=== PATIENT | female | born 1930 | race Caucasian/White ===

== ENCOUNTER 2016-09-02 23:36 | Inpatient (IN) | payer MEDICARE, OTHER ==
--- NOTE | ~2016-09-02 | CN ---
Consultation Report [facility] [address] [place]. [address] NAME: VARUN ETIENNE : 29 STATUS : ADM IN PAT#: [id number] AGE: 85 ADM/REG DATE : 09/03/16 MR#: [id number] REPORT SERV DATE: 09/03/16 DICTATED BY: KAYLA WANG DATE: 09/03/16 REPORT STATUS : Draft TRANSCRIBED BY: MODL DATE: 09/03/16 GI CONSULTATION DATE OF CONSULTATION: 09/03/2016 REASON FOR CONSULTATION: Evaluation and management of bright red blood per rectum. HISTORY OF PRESENT ILLNESS: It should be noted that the history of present illness for this patient has been gathered from the chart, talking to Dr. Vanessa, [facility], as well as the primary RN. The patient cannot supply me with any meaningful history. It appears that the patient lives at [facility]. She has been having some increased confusion as well as dizziness per records. She has been having diarrhea with loss of bowel continence. She has had bright red blood per rectum for the last 24 hours prior to presentation. No melena. No nausea or vomiting. The patient has an elevated potassium at 6.3. Her hemoglobin on admission was 8.5, presently it is 7.6. The nurse states that she did pass a bloody bowel movement this morning with some maroon as well as some clots intermixed. She complains of chest pain. She has had no nausea or vomiting. Her BUN is elevated at 54 with a creatinine of 0.79. She has just received Kayexalate secondary to the elevated potassium, output appears to be an orange color. The patient is awake and alert. When I asked the patient how she is doing, she states she is doing terrible, but she cannot elaborate on that. I have asked her if she knows why she came into the hospital, she states that she does not. She cannot tell me if she has abdominal pain. She did not know she was having any blood per rectum. I have discussed with Dr. Vanessa. There is no family present. At this current moment, we would be unable to prep this patient for colonoscopy. She has active chest pain, which is undergoing evaluation as well as elevated potassium. We are going to hold on any endoscopy at this time. We are going to start her on a Protonix drip. He has ordered a gastric lavage to assure this is not a brisk upper GI bleed, that report an EGD. We will follow the patient and make plans accordingly. PAST MEDICAL HISTORY: Positive for dementia; COPD; coronary artery disease, status post CABG; CHF; hypertension; neuropathy; diabetes; multiple foot ulcers and sacral ulcers; UTI; pyelonephritis; sepsis; bacteremia; peripheral artery disease with bilateral lower extremity stents; rheumatoid arthritis, on steroids. 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 ALLERGIES: NO KNOWN DRUG ALLERGIES. SOCIAL HISTORY: Resides in [facility]. Past tobacco. No alcohol. FAMILY HISTORY: Noncontributory from a GI standpoint. HOME MEDICATIONS: Albuterol, Xanax, Norvasc, vitamin C, aspirin, Dulcolax, Coreg, Plavix, Consultation Report [address] [place]. [address] NAME: VARUN ETIENNE : 29 STATUS : ADM IN [facility]#: [id number] AGE: 85 ADM/REG DATE : 09/03/16 MR#: [id number] REPORT SERV DATE: 09/03/16 DICTATED BY: KAYLA WANG DATE: 09/03/16 REPORT STATUS : Draft TRANSCRIBED BY: HAROLDO DATE: 09/03/16 Colace, Aricept, guaifenesin, hydrocodone, Lantus, Remeron, multivitamin, MiraLAX, Seroquel, Altace, Senokot, Zoloft, Januvia, tramadol, and lidocaine. REVIEW OF SYSTEMS: Unable to be obtained. PHYSICAL EXAMINATION: PERTINENT VITAL SIGNS: Temperature 98.6, pulse 80, respirations are 18, blood pressure 175/80. NEURO: This is a somewhat somnolent female, resting in bed. She has had recent Haldol. She will awaken. She voices to me that she is doing terribly, but cannot elaborate. GENERAL: She is in no acute obvious distress. HEAD EARS, EYES, NOSE, AND THROAT: Anicteric. Pupils equal, round, reactive to light and accommodation. Normocephalic and atraumatic. NECK: No JVD. No palpable nodes. LUNGS: Diminished throughout. Normal respiratory effort exhibited. Equal expansion. CARDIOVASCULAR SYSTEM: Regular rate and rhythm. ABDOMEN: Soft, nondistended, and nontender with active bowel sounds. No organomegaly appreciated. EXTREMITIES: No edema. The patient just frequently had bowel movement with orange output. PERTINENT LABORATORY DATA: Sodium 140, potassium 6.3, BUN is 64, creatinine 0.79. White count 10.3, hemoglobin 7.6, hematocrit 24.1, platelet count 433. INR 1.2. Troponin 0.02. BNP 284. TSH is 2.860. Chest x-ray shows a tortuous ectatic aorta and prior CABG. No other process identified. No other abdominal imaging has been obtained. ASSESSMENT: 1. Reported gastrointestinal bleed, bright red blood per rectum and maroon. Question if this is diverticular in nature versus a brisk upper gastrointestinal bleed. 2. Acute blood loss anemia. 3. Hyperkalemia. 4. Dementia. 5. Coronary artery disease, now with chest pain. Negative troponin. She is on a regimen of Plavix and aspirin. 6. Rheumatoid arthritis. Previously on steroids. PLAN: 1. Continue Protonix drip. 2. Monitor H and H, transfuse. 3. Discussed with Dr. Vanessa. No immediate plans for endoscopy until stable. We will Consultation Report [address] [place]. [address] NAME: VARUN ETIENNE : 29 STATUS : ADM IN [facility]#: [id number] AGE: 85 ADM/REG DATE : 09/03/16 MR#: [id number] REPORT SERV DATE: 09/03/16 DICTATED BY: KAYLA WANG DATE: 09/03/16 REPORT STATUS : Draft TRANSCRIBED BY: MODL DATE: 09/03/16 monitor and plan endoscopy accordingly. KEELY/HAROLDO BOWEN Lorenzo / [id number] CC: Qamar Vanessa M.D.
--- NOTE | ~2016-09-02 | DS ---
Discharge Summary [facility] [address] [place]. [address] NAME: VARUN ETIENNE : 29 STATUS : DIS IN PAT#: [id number] AGE: 85 ADM/REG DATE : 09/03/16 MR#: [id number] REPORT SERV DATE: 09/07/16 DICTATED BY: LEIGHANN JAVED DATE: 09/06/16 REPORT STATUS : Draft TRANSCRIBED BY: MODL DATE: 09/06/16 ADMISSION DATE: 09/03/2016 DISCHARGE DATE: 09/06/2016 PRINCIPAL DIAGNOSIS: Lower gastrointestinal bleed with acute blood loss anemia. SECONDARY DIAGNOSES: 1. Chest pain and dyspnea due to impaired oxygen delivery due to severe anemia. 2. History of coronary disease, on anti-platelet therapy. 3. Type 2 diabetes. 4. Hypotension due to hemorrhagic shock. 5. Severe hyperkalemia. 6. Severe dementia with behavioral disturbance. 7. Rheumatoid arthritis. 8. Heel ulcer. 9. Anorexia with failure to thrive. HISTORY OF PRESENT ILLNESS: Please see Dr. Fuentes's dictation on 09/03/2016. HOSPITAL COURSE: Admitted with a lower GI bleed with a significant hematochezia. It was noted however the patient had a very elevated BUN to creatinine ratio, there was a concern about a brisk upper GI bleed. The patient however was found to have had an elevated BUN to sometimes the past. Upon hydration the BUN came down. Hematocrit did not plummet however, although it did drop to a j luis. Hemoglobin in the 6s during which time, she did have chest pain and shortness of breath. She was transfused with elimination of her symptoms and worship of her hemodynamic status as she had in fact become hypotensive. Troponin I's were negative. I discussed the case with GI who did not feel like she was a colonoscopy candidate in any event, and as the bleeding was not found to be consistent with an upper GI exsanguination. An EGD was also forgone; however, the patient's dementia remained substantial, she is unable to cooperate anyway with any body upon improvement of her medical illness her back to pleasant level of dementia, but still very confused. She was able to be released back to her intermediate with hydralazine 25 mg b.i.d., Lopressor 25 mg b.i.d., Remeron 30 mg q.h.s., Zoloft eliminated to avoid drug interactions with two SSRIs. She will continue Aricept and Namenda, Protonix b.i.d., amlodipine, Seroquel 50 mg b.i.d. She was taken off all hyperglycemic agents as her sugar had been low enough to require a dextrose infusion during her hospitalization, so she was taken off everything there. Ultram, Lortab, and Xanax at very low doses all p.r.n. She did not require any further antipsychotic therapy, although she did earlier on in her hospitalization. The patient was in fact found to have dementia at such an advanced age with a bed-bound status and no longer a candidate for any life-prolonging therapies. We do wish to ask that the doctor of nursing practice Dr. Patel discuss further with the patient's family regarding whether a Palliative Care or Hospice would like to be considered at some point in the future, and if the medicine such as Aricept and Namenda could be weaned down given the lack of benefit in profound natures of cognitive impairment. Greater than 30 minutes were spent on the care of this patient, discharge planning, and Discharge Summary [address] [address] NAME: VARUN ETIENNE : 29 STATUS : DIS IN PAT#: [id number] AGE: 85 ADM/REG DATE : 09/03/16 MR#: [id number] REPORT SERV DATE: 09/07/16 DICTATED BY: LEIGHANN JAVED DATE: 09/06/16 REPORT STATUS : Draft TRANSCRIBED BY: MODL DATE: 09/06/16 discharge day. GAIL/HAROLDO Leighann Javed M.D. / [id number] CC: Leighann Javed M.D.
--- NOTE | ~2016-09-02 | HP ---
History And Physical [address] [place]. [address] NAME: VARUN ETIENNE HONEY : 28 STATUS : ADM IN [facility]#: [id number] AGE: 85 ADM/REG DATE : 09/03/16 MR#: [id number] REPORT SERV DATE: 09/03/16 DICTATED BY: PEACE MENCHACA DATE: 09/03/16 REPORT STATUS : Draft TRANSCRIBED BY: MODJohnnie DATE: 09/03/16 DATE OF ADMISSION: 09/03/2016 CHIEF COMPLAINT: An 85-year-old female presenting with bright red blood per rectum. HISTORY OF PRESENT ILLNESS: The patient's history was obtained through an interview with the patient, coupled with review of [facility] medical records. The patient unable to give much of a history herself as she is obviously affected by dementia. According to [facility] facility, the patient has been having increasing confusion, intermittent dizziness, (the patient does recall feeling dizzy and lightheaded at times.) The patient has also been losing bowel continence with bright red blood for at least 24 hours now. There has been no reported melena. No nausea or vomiting. No diarrhea. Currently, the patient denies any pain complaints at all. No headache. No abdominal pain. No chest pain. No back pain. No shortness of breath. No cough. No fevers or chills. The patient has no current complaints at all. REVIEW OF SYSTEMS: Otherwise, 14-point review of systems was obtained was negative, although could question validity in light of the patient's inability to really recall much of her recent history. PAST MEDICAL HISTORY: 1. Dementia. 2. COPD. 3. Coronary artery disease status post CABG. 4. Congestive heart failure. 5. Hypertension. 6. Neuropathy. 7. Diabetes. 8. Multiple foot ulcers and buttocks ulcers. 9. Urinary tract infection with history of pyelonephritis, sepsis, and bacteremia. 10.Peripheral arterial disease with bilateral lower extremity stents. 11.Rheumatoid arthritis, previously on steroids. PAST SURGICAL HISTORY: 1. CABG in 2002. 2. Squamous cell carcinoma removed from the left wrist. 3. Right carotid endarterectomy. 4. Bunionectomy. ALLERGIES: NO KNOWN DRUG ALLERGIES. History And Physical [address] [address] NAME: LOWELL,VARUN MÉNDEZ : 29 STATUS : ADM IN PAT#: [id number] AGE: 85 ADM/REG DATE : 09/03/16 MR#: [id number] REPORT SERV DATE: 09/03/16 DICTATED BY: PEACE MENCHACA DATE: 09/03/16 REPORT STATUS : Draft TRANSCRIBED BY: HAROLDO DATE: 09/03/16 CODE STATUS: DNR. SOCIAL HISTORY: Resides at [facility]. Still . Has a son, daughter, two grandchildren at least. Quit smoking years ago. No alcohol abuse. She worked at [employer] until 2012. She used to work in the school system. FAMILY HISTORY: Brother with stroke. Mother with breast cancer. Father with COPD. CURRENT MEDICATIONS: 1. Albuterol inhaler. 2. Xanax 0.5 mg p.o. q.8 hours p.r.n. 3. Norvasc 5 mg p.o. daily. 4. Vitamin C. 5. Aspirin 81 mg p.o. daily. 6. Dulcolax. 7. Coreg 3.25 mg p.o. b.i.d. 8. Plavix 75 mg p.o. daily. 9. Colace 100 mg p.o. b.i.d. 10.Aricept 10 mg daily. 11.Guaifenesin. 12.Hydrocodone p.r.n. 13.Lantus 5 units subcutaneous in the morning. 14.Remeron 15 mg p.o. q.h.s. 15.Multivitamin. 16.MiraLAX packet daily. 17.Seroquel 50 mg p.o. b.i.d. 18.Altace 10 mg p.o. b.i.d. 19.Senokot. 20.Zoloft 50 mg p.o. daily. 21.Januvia 100 mg p.o. daily. 22.Tramadol p.r.n. 23.Lidocaine as needed. PHYSICAL EXAMINATION: VITAL SIGNS: Temperature 98.5, pulse 70, blood pressure 218/47, respiratory rate 16, and O2 saturation 99% on room air. GENERAL: A pleasant, cooperative female. No complaints. No distress. HEENT: Pupils equal, round, and reactive to light. The patient has conjunctival pallor, but no scleral icterus. Nares are patent. Oropharynx is clear of obstruction. Moist mucous membranes. No intraoral lesions. NECK: Trachea midline. No thyromegaly. LYMPH: No cervical lymphadenopathy. No supraclavicular lymphadenopathy. RESPIRATORY: Clear to auscultation at bases. No wheezes, rales, or rhonchi. Normal respiratory effort. CARDIOVASCULAR: Regular rate and rhythm. No murmurs, rubs, or gallops. No extremity edema is appreciated. History And Physical [address] [address] NAME: VARUN ETIENNE : 29 STATUS : ADM IN PAT#: [id number] AGE: 85 ADM/REG DATE : 09/03/16 MR#: [id number] REPORT SERV DATE: 09/03/16 DICTATED BY: PEACE MENCHACA DATE: 09/03/16 REPORT STATUS : Draft TRANSCRIBED BY: HAROLDO DATE: 09/03/16 ABDOMEN: Completely soft, nontender, and nondistended. Normal bowel sounds. No hepatosplenomegaly. DERMATOLOGIC: Warm and dry extremities. The patient has peripheral pallor, but no cyanotic changes. PSYCHIATRIC: Normal affect, but sometimes is a bit irritable. No depression. No anxiety. She is alert, but poorly oriented to her location, definitely disoriented to time, and has difficulty with orientation to her recent history. LABORATORY DATA: White blood cell count 8.0, hemoglobin 8.6, hematocrit 26.6, and platelets 418. Sodium 138, potassium 5.9, chloride 110, bicarb 22, BUN 58, creatinine 0.90, and glucose 128. Urinalysis shows 6 white blood cells, small leukocyte esterase. Albumin 2.9. INR 1.2. Liver enzymes within normal limits. ASSESSMENT AND PLAN: 1. Lower gastrointestinal bleed. Obtain a GI consult with Dr. Yañez. Hold Plavix and aspirin. Follow hemoglobin and hematocrit closely. 2. Acute blood loss anemia. Follow hemoglobin and hematocrit. 3. Dementia. 4. Hyperkalemia, it is mild. Place on IV fluids. Hold MILIND inhibitor. Monitor closely. 5. Pressure ulcer of the heel. Obtain a Wound Care consult. 6. Hypertensive urgency, p.r.n. medications. 7. Diabetes. Check hemoglobin A1c. Place on subsequent insulin. 8. Rheumatoid arthritis, seems well controlled. Check an ESR. KPL/MODL Peace Menchaca M.D. / [id number] CC: Vickie Lujan M.D.
[2016-09-02 23:02] LABS: BASOPHILS 0.2 %; BASOPHILS ABSOLUTE 0.02 10/3/uL (0.0-0.16); ER CBC TAT 0 Hrs 03 Mins; HEMATOCRIT 26.6 % (36.0-48.0); HEMOGLOBIN 8.6 g/dL (12.0-16.0); IMMATURE GRANULOCYTES 0.2 %; IMMATURE GRANULOCYTES ABSOLUTE 0.02 10/3/uL (0.0-0.11); LYMPHOCYTES 19.3 %; LYMPHOCYTES ABSOLUTE 1.55 10/3/uL (0.67-4.30); MANUAL DIFF NO %; MEAN CORPUS HGB CONC 32.3 g/dL (32.0-36.0); MEAN CORPUSCULAR VOLUME 83.4 fL (80-100); MEAN PLATELET VOLUME 8.7 fL (9.2-13.0); MONOCYTES ABSOLUTE 0.64 10/3/uL (0.21-1.20); NEUTROPHILS 67.3 %; PLATELET COUNT 418 10/3/uL (150-400); RBC DISTRIBUTION WIDTH 16.6 % (12.0-16.0); RED CELL COUNT 3.19 10/6/uL (4.0-5.6)
[2016-09-02 23:09] LABS: INTERNATIONAL NORMAL RATI 1.2 UNITS (-); PARTIAL THROMBO TIME 35.6 SEC (22.5-37.2); PROTIME (NOT ORD) 14.7 SEC (12.0-14.5)
[2016-09-02 23:19] LABS: CHLORIDE, SERUM 110 MMOL/L (96-112); CO2 (CARBON DIOXIDE) 22 MMOL/L (24-34); GFR AFRICAN AMERICAN 67 ML/MIN (>=60); GFR NON AFRICAN AMERICAN 58 ML/MIN (>=60); SGOT(AST) 14 U/L (5-40); SGPT(ALT) 19 U/L (5-65); SODIUM, SERUM 138 MMOL/L (135-148); TOTAL BILIRUBIN 0.1 MG/DL (0-1.2); TOTAL PROTEIN 8.5 G/DL (6.0-8.5)
[2016-09-02 23:20] LABS: A/G RATIO 0.5 (0.7-1.9); ALBUMIN 2.9 G/DL (3.5-5.0); ALKALINE PHOSPHATASE 105 U/L (45-117); BUN (BLOOD UREA NITROGEN) 58 MG/DL (6-23); GLOBULIN 5.6 G/DL (2.5-4.1); GLUCOSE, SERUM 128 MG/DL (60-99); POTASSIUM, SERUM 5.9 MMOL/L (3.5-5.3)
[~2016-09-02 23:36] MED LIST: ALLERGY MED OTC PO; ALTACE10 MG PO; ARICEPT10 PO; ASAB PO; AUG875 PO; BEN25 PO; CLARIT10 PO; COREG25 PO; COREG3 PO; COREGCR20 PO; CRESTOR5 MG PO; FLONASE NAS; GLUCOPHXR PO; GLUCOV2.5 PO; GLUCPH PO; LEVAQUIN750 MG PO; MUCINEX SINUS MAX PO; MUCINEX600 MG PO; MULTIPLE VIT PO; NEUR100 PO; NORV10 PO; OCEAN NAS; OTC ALLERGY TABLET PO; P10 PO; PLAVIX PO; PRAVACHOL40 MG PO; PROAIR HFA INH; PROVENTSOL INH; TEARS NATURA OPH; TEARS PLUS OP; TEKTUR150 PO; TESS PO; ULTRAM50 PO
[2016-09-03 00:14] LABS: ASCORBIC ACID (UR NOT ORDER) 40 (NEG); BILIRUBIN, URINE NEGATIVE (NEG); ER URINALYSIS TAT 0 Hrs 00 Mins; KETONE, URINE NEGATIVE (NEG); LEUKOCYTE ESTERASE(NOT OR SMALL (NEG); NITRITE (URINE) NEG (NEG); WBC (NOT ORDERED) (RFLEX) 6 (0-5)
[2016-09-03] MEDS ORDERED: NORV5 PO (00:20)
[2016-09-03] MEDS ORDERED: ASAB PO (00:20)
[2016-09-03] MEDS ORDERED: COREG3 PO (00:21)
[2016-09-03] MEDS ORDERED: DSS PO (00:22)
[2016-09-03] MEDS ORDERED: PLAVIX PO (00:22)
[2016-09-03] MEDS ORDERED: JANUVIA100 MG PO (00:23)
[2016-09-03] MEDS ORDERED: ARICEPT10 PO (00:23)
[2016-09-03] MEDS ORDERED: MIRALAX POWDER1 PKT PO (00:24)
[2016-09-03] MEDS ORDERED: REM15 PO (00:24)
[2016-09-03] MEDS ORDERED: LANTUSCART SC (00:24)
[2016-09-03] MEDS ORDERED: SEROQUEL50 MG PO (00:24)
[2016-09-03] MEDS ORDERED: MULTIVIT/MIN PO (00:24)
[2016-09-03] MEDS ORDERED: ZOL50 PO (00:26)
[2016-09-03] MEDS ORDERED: ALTACE10 MG PO (00:26)
[2016-09-03] MEDS ORDERED: SENTAB PO (00:26)
[2016-09-03] MEDS ORDERED: VITC500 PO (00:26)
[2016-09-03] MEDS ORDERED: X5 PO (00:27)
[2016-09-03] MEDS ORDERED: BISR PR (00:28)
[2016-09-03] MEDS ORDERED: NORCO1 TA1 PO (00:28)
[2016-09-03] MEDS ORDERED: LIDOCAINE JELLY 2% TOP (00:29)
[2016-09-03] MEDS ORDERED: MOMUD PO (00:29)
[2016-09-03] MEDS ORDERED: SILTUSSIN100 MG/5 M PO (00:30)
[2016-09-03] MEDS ORDERED: VENTOLIN HFA INH (00:31)
[2016-09-03] MEDS ORDERED: ULTRAM50 PO (00:31)
[2016-09-03 07:02] LABS: HEMATOCRIT 25.1 % (36.0-48.0); HEMOGLOBIN 8.2 g/dL (12.0-16.0)
[2016-09-03 07:27] LABS: BASOPHILS 0.3 %; BASOPHILS ABSOLUTE 0.03 10/3/uL (0.0-0.16); EOSINOPHILS ABSOLUTE 0.41 10/3/uL (0.0-0.53); HEMOGLOBIN 7.9 g/dL (12.0-16.0); IMMATURE GRANULOCYTES 0.4 %; IMMATURE GRANULOCYTES ABSOLUTE 0.04 10/3/uL (0.0-0.11); LYMPHOCYTES 20.3 %; MEAN CORPUS HGB CONC 32.9 g/dL (32.0-36.0); MEAN CORPUSCULAR HEMOGLOB 27.4 pg (26.0-34.0); MEAN CORPUSCULAR VOLUME 83.3 fL (80-100); MEAN PLATELET VOLUME 9.2 fL (9.2-13.0); MONOCYTES 6.2 %; MONOCYTES ABSOLUTE 0.64 10/3/uL (0.21-1.20); NEUTROPHILS 68.8 %; NEUTROPHILS ABSOLUTE 7.12 10/3/uL (2.02-8.40); PLATELET COUNT 433 10/3/uL (150-400); RBC DISTRIBUTION WIDTH 16.8 % (12.0-16.0); RED CELL COUNT 2.88 10/6/uL (4.0-5.6); WHITE BLOOD CELLS 10.3 10/3/uL (4.5-10.5)
[2016-09-03 07:30] LABS: MANUAL DIFF NO %
[2016-09-03 07:50] LABS: B NATRIURETIC PEPTIDE (BNP) 284.7 PG/ML (< 100.0)
[2016-09-03 07:51] LABS: A/G RATIO 0.6 (0.7-1.9); ALBUMIN 2.9 G/DL (3.5-5.0); CALCIUM, SERUM 8.8 MG/DL (8.5-10.4); CHLORIDE, SERUM 112 MMOL/L (96-112); CREATININE 0.79 MG/DL (0.55-1.02); GFR AFRICAN AMERICAN 79 ML/MIN (>=60); GFR NON AFRICAN AMERICAN 68 ML/MIN (>=60); GLOBULIN 5.2 G/DL (2.5-4.1); GLUCOSE, SERUM 130 MG/DL (60-99); INTERNATIONAL NORMAL RATI 1.2 UNITS (-); PROTIME (NOT ORD) 15.4 SEC (12.0-14.5); SGOT(AST) 14 U/L (5-40); SGPT(ALT) 15 U/L (5-65); SODIUM, SERUM 140 MMOL/L (135-148); TOTAL BILIRUBIN 0.1 MG/DL (0-1.2); TOTAL PROTEIN 8.1 G/DL (6.0-8.5); TROPONIN I 0.02 NG/ML (<0.05)
[2016-09-03 07:53] LABS: BUN (BLOOD UREA NITROGEN) 54 MG/DL (6-23); CO2 (CARBON DIOXIDE) 17 MMOL/L (24-34); POTASSIUM, SERUM 6.3 MMOL/L (3.5-5.3)
[2016-09-03 07:54] LABS: ALKALINE PHOSPHATASE 86 U/L (45-117); CK-MB 1.7 NG/ML; CPK 29 U/L (0-200)
[2016-09-03 08:22] LABS: SED RATE 119 MM/HR (0-20)
[2016-09-03 09:43] LABS: BE (BASE EXCESS) -9.1 MEQ/L (0 +/- 2.5); CARBOXYHEMOGLOBIN 2.6 % (0-3); HEMOBLOGIN CONTENT 5.8 G/DL (12-16); INSTRUMENT SERIAL # 11843; METHEMOGLOBIN 0.1 % (0-3); O2 CONTENT 7.8 VOL% (18-24); PCO2 (CO2 TENSION) 31 MMHG (35-45); PO2 (O2 TENSION) 84 MMHG (79-93); pH 7.33 (7.37-7.43)
[2016-09-03 09:44] LABS: SAMPLE Arterial
[2016-09-03 09:51] LABS: HEMATOCRIT 24.1 % (36.0-48.0); HEMOGLOBIN 7.6 g/dL (12.0-16.0)
[2016-09-03 13:11] LABS: GLYCOHEMOGLOBIN (HbA1c) 5.5 % (4.7-6.1)
[2016-09-03 15:41] LABS: % IRON SAT 15 % (20-50); FERRITIN 29 NG/ML (8-252); IRON BINDING CAPACITY 298 MCG/DL (225-410); IRON, SERUM 45 MCG/DL (35-150); POTASSIUM, SERUM 5.4 MMOL/L (3.5-5.3); TROPONIN I <0.02 NG/ML (<0.05)
[2016-09-03 17:24] LABS: HEMATOCRIT 20.5 % (36.0-48.0); HEMOGLOBIN 6.7 g/dL (12.0-16.0); RETICULOCYTE COUNT 1.9 % (0.5-2.5); RETICULOCYTE COUNT ABSOLUTE 45.2 10/3/uL (20.2-119.8)
[2016-09-03 21:41] LABS: HEMOGLOBIN 7.7 g/dL (12.0-16.0)
[2016-09-03 21:43] LABS: HEMATOCRIT 23.2 % (36.0-48.0)
[2016-09-04 10:37] LABS: BASOPHILS 0.1 %; BASOPHILS ABSOLUTE 0.01 10/3/uL (0.0-0.16); EOSINOPHILS 3.6 %; EOSINOPHILS ABSOLUTE 0.25 10/3/uL (0.0-0.53); HEMATOCRIT 24.8 % (36.0-48.0); HEMOGLOBIN 8.4 g/dL (12.0-16.0); IMMATURE GRANULOCYTES 0.3 %; IMMATURE GRANULOCYTES ABSOLUTE 0.02 10/3/uL (0.0-0.11); LYMPHOCYTES 21.4 %; LYMPHOCYTES ABSOLUTE 1.48 10/3/uL (0.67-4.30); MEAN CORPUS HGB CONC 33.9 g/dL (32.0-36.0); MEAN CORPUSCULAR HEMOGLOB 28.9 pg (26.0-34.0); MEAN CORPUSCULAR VOLUME 85.2 fL (80-100); MEAN PLATELET VOLUME 9.1 fL (9.2-13.0); MONOCYTES 9.5 %; MONOCYTES ABSOLUTE 0.66 10/3/uL (0.21-1.20); NEUTROPHILS 65.1 %; RBC DISTRIBUTION WIDTH 16.5 % (12.0-16.0); RED CELL COUNT 2.91 10/6/uL (4.0-5.6); WHITE BLOOD CELLS 6.9 10/3/uL (4.5-10.5)
[2016-09-04 10:41] LABS: PLATELET COUNT 287 10/3/uL (150-400)
[2016-09-04 10:42] LABS: MANUAL DIFF NO %
[2016-09-04 10:57] LABS: A/G RATIO 0.6 (0.7-1.9); ALBUMIN 2.6 G/DL (3.5-5.0); CALCIUM, SERUM 8.4 MG/DL (8.5-10.4); CHLORIDE, SERUM 109 MMOL/L (96-112); CREATININE 0.77 MG/DL (0.55-1.02); GFR AFRICAN AMERICAN 81 ML/MIN (>=60); GFR NON AFRICAN AMERICAN 70 ML/MIN (>=60); GLOBULIN 4.3 G/DL (2.5-4.1); GLUCOSE, SERUM 147 MG/DL (60-99); SGOT(AST) 13 U/L (5-40); SGPT(ALT) 14 U/L (5-65); SODIUM, SERUM 144 MMOL/L (135-148); TOTAL BILIRUBIN 0.4 MG/DL (0-1.2); TOTAL PROTEIN 6.9 G/DL (6.0-8.5); TROPONIN I 0.03 NG/ML (<0.05)
[2016-09-04 10:58] LABS: ALKALINE PHOSPHATASE 65 U/L (45-117); BUN (BLOOD UREA NITROGEN) 39 MG/DL (6-23); CO2 (CARBON DIOXIDE) 24 MMOL/L (24-34); PHOSPHORUS, SERUM 2.2 MG/DL (2.5-4.5); POTASSIUM, SERUM 4.1 MMOL/L (3.5-5.3)
[2016-09-05 13:04] LABS: HEMATOCRIT 26.4 % (36.0-48.0); HEMOGLOBIN 8.8 g/dL (12.0-16.0)
[2016-09-05 23:32] LABS: HEMATOCRIT 30.4 % (36.0-48.0); HEMOGLOBIN 10.1 g/dL (12.0-16.0)
[2016-09-06 05:35] LABS: HEMATOCRIT 28.2 % (36.0-48.0); HEMOGLOBIN 9.5 g/dL (12.0-16.0)
[2016-09-06 07:07] LABS: BUN (BLOOD UREA NITROGEN) 9 MG/DL (6-23); CHLORIDE, SERUM 93 MMOL/L (96-112); CO2 (CARBON DIOXIDE) 36 MMOL/L (24-34); CREATININE 0.63 MG/DL (0.55-1.02); GFR AFRICAN AMERICAN 94 ML/MIN (>=60); GFR NON AFRICAN AMERICAN 81 ML/MIN (>=60); GLUCOSE, SERUM 141 MG/DL (60-99); SODIUM, SERUM 137 MMOL/L (135-148)
== END 2016-09-06 17:39 | DRG 377 ==
LOC: ER 23:36 → 1SO 09-03 00:41
PROVIDERS: Emergency Medicine; Hospitalist; Internal Medicine
PROC: 30233N1 Transfusion of Nonautologous Red Blood Cells into Peripheral Vein, Percutaneous Approach (ICD-10-PCS; principal; 2016-09-03)
DX: K92.2 Gastrointestinal hemorrhage, unspecified (principal); T79.4XXA Traumatic shock, initial encounter; D62 Acute posthemorrhagic anemia; L97.409 Non-pressure chronic ulcer of unspecified heel and midfoot with unspecified severity; F03.90 Unspecified dementia, unspecified severity, without behavioral disturbance, psychotic disturbance, mood disturbance, and anxiety; E87.5 Hyperkalemia; I10 Essential (primary) hypertension; E11.9 Type 2 diabetes mellitus without complications; M06.9 Rheumatoid arthritis, unspecified; R62.7 Adult failure to thrive; I25.10 Atherosclerotic heart disease of native coronary artery without angina pectoris; I73.9 Peripheral vascular disease, unspecified
CPT/HCPCS: 36415; 36600; 71010; 80048; 80053; 81001; 82550; 82553; 82728; 82805; 82962; 83036; 83540; 83550; 83735; 83880; 84100; 84132; 84443; 84484; 85014; 85018; 85025; 85045; 85610; 85652; 85730; 86850; 86900; 86901; 86920; 87086; 93005; 99285; A9270-GY; C9113; J1630; J2405; J2597; J2916; P9016

== ENCOUNTER 2017-01-28 14:37 | Inpatient (IN) | payer MEDICARE, OTHER ==
[~2017-01-28] VITALS: Ht 162.6 cm; Wt 57.7 kg
--- NOTE | ~2017-01-28 | CN ---
Consultation Report [facility] [address] [place]. [address] NAME: VARUN ETIENNE : 29 STATUS : ADM IN PAT#: [id number] AGE: 86 ADM/REG DATE : 01/28/17 MR#: [id number] REPORT SERV DATE: 01/31/17 DICTATED BY: YEYO BROOKS DATE: 01/31/17 REPORT STATUS : Draft TRANSCRIBED BY: MODL DATE: 01/31/17 INFECTIOUS DISEASE CONSULT DATE OF CONSULTATION: REASON FOR REFERRAL: Evaluation and treatment of positive blood cultures. HISTORY OF PRESENT ILLNESS: The patient is an 86-year-old female, she has history of hypertension, diabetes mellitus, past rheumatoid arthritis for which she has gotten steroids, peripheral vascular disease, chronic obstructive pulmonary disease, and advanced dementia. She is bedbound and speaks little at baseline. She was admitted here from a half-way on 01/28/2017, with declining mental status, becoming almost unresponsive. She had fever. There was some hypotension after admission. She had cultures done and was started empirically on vancomycin, cefepime, and Flagyl. She has a deep ulcer on her right upper calf that was thought to possibly be the source. She also had pyuria and has later grown a very sensitive E coli greater than 100,000 colonies from her urine. Blood cultures were positive from admission with Gram-positive cocci and clusters, two of two, but those have since been identified as coagulase negative Staph. An echocardiogram has been ordered following those positive blood cultures. There was confusion about whether or not the patient had a DNR reversed and she was transferred to the intensive care unit, but in further discussions with the family and explosive ordnance disposal specialist, they still wished her to be a DNR and so she has been transferred back out to the floor now, and Palliative Care is seeing her. She is more awake and alert now and interactive, though easily confused, and it sounds as though she has gotten back to baseline. She has been afebrile over the first 24 hours. White blood cell count improved, went back up slightly probably because of steroid exposure. No imaging has been done on the leg thus far. PAST MEDICAL HISTORY: Otherwise unremarkable. MEDICATIONS: As described above. ALLERGIES: SHE HAS NO KNOWN ANTIMICROBIAL ALLERGIES. SOCIAL HISTORY: She is . Resides in a long-term care facility as previously mentioned. She has a distant history of smoking. No history of alcohol or substance abuse. FAMILY HISTORY: Noncontributory. PHYSICAL EXAMINATION: GENERAL: She is an elderly female, lying quietly in bed. When awakened, she is able to answer direct questions with fluent speech. VITAL SIGNS: She at present has a temperature of 97.7, pulse 96, respirations 22, blood pressure 84/53, weight 57 kg. HEENT: Sclerae clear. No oral lesions. Consultation Report [address] [place]. [address] NAME: VARUN ETIENNE : 28 STATUS : ADM IN PAT#: [id number] AGE: 86 ADM/REG DATE : 01/28/17 MR#: [id number] REPORT SERV DATE: 01/31/17 DICTATED BY: YEYO BROOKS DATE: 01/31/17 REPORT STATUS : Draft TRANSCRIBED BY: HAROLDO DATE: 01/31/17 NECK: Supple without lymphadenopathy. LUNGS: There are crackles in the bases, otherwise clear. HEART: Regular rate and rhythm. ABDOMEN: Soft and nontender. Positive bowel sounds. EXTREMITIES: The right upper lateral calf has about a 3 cm deep ulceration, reported by others that tendon were visible when she originally came in, does look like the redness is somewhat improved on antibiotics. There is no purulent drainage from it and it looks to be a pressure ulcer, unclear at this time, whether that is actually infected, shallow ulceration are stage I decubitus left heel, right heel looks okay, and she has a sacral decubitus. LABORATORY DATA: White blood cell count 10.6 when she came in, 11.1 today; with hematocrit 28.3, platelets 486, unremarkable differential. BUN and creatinine 11 and 0.39, procalcitonin less than 0.05. IMPRESSION: 1. Sepsis-like presentation, potential sources would include first of all, pyelonephritis. I think in fact that is the most likely cause and she has responded well to antibiotics that cover that. 2. Secondly, infected ulcer right calf, it is decubitus, but I am not certain that all that is truly infected. 3. Positive blood cultures that are in fact contaminants. RECOMMENDATIONS: 1. Reasonable to CT the leg to determine the extent of that whether steep and involving bone. 2. We will change to Ancef to cover the E coli which I think is the most likely cause for her illness. I do not think an echocardiogram is indicated since the blood cultures are contaminant. Finally, I will follow the patient with you. 3. I appreciate very much your consulting on this patient. DEVIN Yeyo Brooks M.D. / [id number] CC: Vitaly Caraballo,
--- NOTE | ~2017-01-28 | HP ---
History And Physical [place] [id number] [facility] [place]. [address] NAME: VARUN ETIENNE : 29 STATUS : ADM IN [facility]#: [id number] AGE: 86 ADM/REG DATE : 01/28/17 MR#: [id number] REPORT SERV DATE: 01/29/17 DICTATED BY: CHRIS ORR DATE: 01/28/17 REPORT STATUS : Draft TRANSCRIBED BY: MODL DATE: 01/28/17 DATE OF ADMISSION: 01/28/2017 CHIEF COMPLAINT: This is an 86-year-old white female referred from [facility] today, triaged in the emergency room on 01/28/2017 at 1459 hours with a diagnosis of altered mental status and fever. Admission ER Vital Signs: Blood pressure 154/64, temp 101, pulse 79, respirations 22, O2 saturation 96% on 4 L. After evaluation in the emergency room, she was referred to the Hospitalist Service for admission. She is now seen by the undersigned and admitted. The patient is unable to give any historical information. Records on [facility] are reviewed. Notes from [facility] indicate that there had been a change in her mental status. There had been fever. There have been concern about a right leg ulcer that had progressed. PAST MEDICAL HISTORY: Her medical history gleaned from her old records includes: 1. COPD with history of acute exacerbations and respiratory failure. 2. Coronary artery disease, post CABG. 3. Congestive heart failure, type unclear. 4. Hypertension. 5. Diabetes. 6. Neuropathy. 7. History of urinary tract infections and sepsis. 8. Peripheral arterial disease with previous PCIs. 9. History of rheumatoid arthritis with previous corticosteroid therapy. 10.Carotid disease with previous right carotid endarterectomy. 11.Squamous cell skin cancer. 12.Gastrointestinal bleeding, 08/2016. No endoscopic evaluation performed, treated conservatively with transfusion. 13.Chronic constipation. 14.Dementia with behavioral disorder. PAST SURGICAL HISTORY: 1. CABG. 2. Squamous cell carcinoma, left wrist. 3. Right carotid endarterectomy. 4. Bunionectomy. ALLERGIES OR INTOLERANCE: None. TRANSFER MEDICATIONS: Xanax 0.5 mg every six hours as needed, Norvasc 10 mg daily, vitamin C 500 mg twice daily, Dulcolax suppository daily as needed, Colace 100 mg twice daily, iron History And Physical [facility] [address]. [address] NAME: VARUN ETIENNE : 29 STATUS : ADM IN PAT#: [id number] AGE: 86 ADM/REG DATE : 01/28/17 MR#: [id number] REPORT SERV DATE: 01/29/17 DICTATED BY: CHRIS ORR DATE: 01/28/17 REPORT STATUS : Draft TRANSCRIBED BY: HAROLDO DATE: 01/28/17 sulfate 325 mg daily, Apresoline 25 mg twice daily, Lopressor 25 mg twice daily, milk of magnesia 30 mL as needed, Remeron 7.5 mg at bedtime, multivitamins daily, Prilosec 40 mg daily, MiraLAX packet 17 g daily, potassium 20 mEq daily, Seroquel 150 mg twice daily, Kayla- Colace 2 tabs at bedtime, Ultram 50 mg daily plus every six hours as needed, Santyl ointment to right buttock with dressing change, Fleet enema as needed. CODE STATUS: DNR limited. SOCIAL HISTORY: Per old records, resides at [facility]. Remote tobacco use. Previously employed at [employer] in the [employer] system. FAMILY HISTORY: From old records positive for COPD, breast cancer, and stroke. REVIEW OF SYSTEMS: Cannot be obtained. PHYSICAL EXAMINATION: Admission ED vital signs see above. VITAL SIGNS: Blood pressure 154/64, temp 101, pulse 79, respirations 22, O2 saturation 96% on 4 L. GENERAL: This is a stated age-appearing white female examined in the ED room 24. There was no one present. She intermittently moans. She does not answer questions. She is cachectic. SKIN: Cool and dry. There is a 2 cm ulcer with exudate lateral right leg just below her knee on the fibular head. There is a Mepilex pad covering an area of erythema on her right heel. No rash is seen. NODES: No palpable axillary, cervical, or inguinal. HEENT: There is temporal wasting. No evident trauma. Facies are symmetric. Lower lids with exudate. No conjunctival erythema or icterus. Pupils are 3 mm, equal and react to light. No extraocular movements seen. Unable to visualize fundi. I cannot tell if hearing intact. External ears negative. Ear canal ceruminous, cannot see TMs. Nose negative. Anterior nares with dry exudate. She is edentulous. Lips, gums, mucosa, hard, soft palates, posterior pharynx, and tongue negative except for dry mucous membranes. Parotid and submaxillary glands are not enlarged. NECK: Supple with limited movement. No palpable mass, goiter, or evident tenderness to palpation. Trachea midline. Nontender. No jugular venous distention appreciated. LUNGS: Few rales at left base. Diminished breath sounds at right base. CHEST: Previous midline sternotomy. HEART: PMI not palpable, regular rhythm 2/6 systolic murmur without diastolic murmur, click, rub, or S3 gallop. Pulses 1+ radial and carotid, 2+ femoral, absent dorsalis pedis and posterior tibial. ABDOMEN: Flat, soft. No palpable mass, organs, or definite increased aortic pulsation. : Cervantes catheter in place with cloudy urine with sediment. EXTREMITIES: Upper and lower extremities. Right arm flexion contracture at elbow, diminished fat mass, diminished muscle mass. No active synovitis. No edema. NEUROLOGIC: Mental status, see above. Cranial nerves II through XII cannot be adequately assessed. Deep tendon reflexes cannot be obtained. History And Physical [address] [id number] NAME: VARUN ETIENNE : 28 STATUS : ADM IN [facility]#: [id number] AGE: 86 ADM/REG DATE : 01/28/17 MR#: [id number] REPORT SERV DATE: 01/29/17 DICTATED BY: CHRIS ORR DATE: 01/28/17 REPORT STATUS : Draft TRANSCRIBED BY: MODL DATE: 01/28/17 MOTOR: She moves her hands. Otherwise, no spontaneous movement seen. Sensory cannot be tested. DATA: Chest x-ray reviewed. There is apparent right pleural effusion, though cannot exclude pneumonia or mass. Nodular opacities, left mid lung. EKG is pending. Procalcitonin is 0.07. Sodium 137, potassium 4.6, chloride 104, CO2 of 26, BUN 22, creatinine 0.67, glucose 178, calcium 9.2, magnesium 1.8, total protein 8.7, albumin 2.1, and total bilirubin 0.5, alkaline phosphatase 87, ALT 14, AST 24, lipase is 48. Troponin is 0.02. Lactate is 1.1. White count 10.6, hemoglobin 10.6, platelets 525,000, PTT 38.9, PT 14.9. Urinalysis positive rbc's, wbc's, and many bacteria. ASSESSMENT: This is an 86-year-old white female [facility] patient with: 1. Sepsis. 2. Encephalopathy. 3. Dementia with behavior disorder. 4. Urinary tract infection. 5. Cervantes catheter. 6. Right pleural effusion, question infiltrate, question mass. 7. Right lower extremity ulcer with exudate, apparently worsening. 8. Chronic anemia. 9. Thrombocytosis. 10.Cachexia with apparent severe malnutrition. 11.Chronic obstructive pulmonary disease with history of acute exacerbation and respiratory failure. 12.Coronary artery disease, previous CABG. 13.Congestive heart failure history, type unknown. 14.Hypertension. 15.Diabetes. 16.Neuropathy. 17.History of urinary tract infections with sepsis. 18.Peripheral arterial disease with history of PCIs. 19.History rheumatoid arthritis, on steroids in the past, none at this time. 20.Carotid disease with previous right carotid endarterectomy. 21.History of skin cancer. 22.History of gastrointestinal bleed 09/06 without endoscopic evaluation. 23.Chronic constipation. 24.DNR limited. PLAN: Pending family arrival, change Cervantes catheter. Get new urine and culture. Get blood cultures. Begin broad-spectrum antimicrobial therapy with cefepime, vancomycin, and Flagyl. Continue home medications. Hold n.p.o. except medications with sips of clear liquids. Continue DNR limited. Consider palliative care, hospice care versus further imaging evaluation and treatment pending discussion with appropriate family. DD/MODL History And Physical [address] [address] NAME: VARUN ETIENNE : 28 STATUS : ADM IN PAT#: [id number] AGE: 86 ADM/REG DATE : 01/28/17 MR#: [id number] REPORT SERV DATE: 01/29/17 DICTATED BY: CHRIS ORR DATE: 01/28/17 REPORT STATUS : Draft TRANSCRIBED BY: HAROLDO DATE: 01/28/17 Chris Orr M.D. / [id number] CC: Vitaly Caraballo DO
--- NOTE | ~2017-01-28 | DS ---
Discharge Summary [facility] [address] [place]. [address] NAME: VARUN ETIENNE : 28 STATUS : DIS IN PAT#: [id number] AGE: 86 ADM/REG DATE : 01/28/17 MR#: [id number] REPORT SERV DATE: 02/04/17 DICTATED BY: SATHISH DELEON DATE: 02/03/17 REPORT STATUS : Draft TRANSCRIBED BY: MODL DATE: 02/03/17 ADMISSION DATE: 01/28/2017 DISCHARGE DATE: 02/03/2017 DISCHARGE DIAGNOSES: 1. Sepsis likely secondary to pyelonephritis, now improved. 2. Acute metabolic encephalopathy in the setting of sepsis and advanced dementia. 3. Right lower extremity ulcer present on admission. 4. Right-sided pleural effusion exudative in nature status post thoracentesis complicated by ex vacuo pneumothorax is stable. 5. Diabetes mellitus. 6. Chronic obstructive pulmonary disease. 7. History of coronary artery bypass graft. 8. Hypokalemia. 9. Anxiolytic dependence. PERTINENT IMAGING AND PROCEDURES PERFORMED DURING THIS ADMISSION: 1. Chest CT without contrast, 01/31/2017. Impression: Multiple new left upper lobe and lingular lung nodules. The largest nodules are approximately 1.3 cm. Findings may be related to an acute infectious process or metastatic disease. Biopsy should be considered for further evaluation if clinically indicated. No significantly enlarged or necrotic lymph nodes are identified. There are a few borderline mediastinal lymph nodes. New large right pleural effusion with compressive atelectasis and consolidation in the right lower lobe. There is additional atelectasis in the posterior aspect of the right upper lobe and right middle lobe. Small left pleural effusion and left basilar atelectasis. Extensive calcified atherosclerotic disease. The patient is post CABG. 2. CT of the right lower extremity, 01/31/2017. Impression: There appears to be an ulceration of the lateral aspect upper right calf adjacent to the proximal fibula. No definite CT evidence for osteomyelitis appreciated. Degenerative changes of both knees. There is trace right and small left suprapatellar joint effusions. 3. Thoracentesis performed on 02/01/2017; 850 mL of clear yellow fluid from the right pleural space, complicated by an ex vacuo pneumothorax with no change in hemodynamics or presence of respiratory distress. HOSPITAL COURSE: Please refer to the admission history and physical by the admitting hospitalist for full history of this patient. Briefly, this [facility] metabolic encephalopathy as well as sepsis that has now ultimately been thought to be secondary to pyelonephritis. Upon admission she was started on broad-spectrum antibiotics after cultures were obtained. Ultimately her urine did grow friendly E. coli. Blood cultures grew a contaminant and for that ID was consulted, and did confirm that this is indeed a contaminant. During her admission for sepsis she did have an episode of hypoxia and hypotension that resulted in very brief transfer to the MICU where she was found to be normotensive and without hypoxia. She never required pressors and was quickly transferred Discharge [address] [place]. [address] NAME: VARUN ETIENNE : 28 STATUS : DIS IN PAT#: [id number] AGE: 86 ADM/REG DATE : 01/28/17 MR#: [id number] REPORT SERV DATE: 02/04/17 DICTATED BY: SATHISH DELEON DATE: 02/03/17 REPORT STATUS : Draft TRANSCRIBED BY: HAROLDO DATE: 02/03/17 back out to the floor. Per ID's recommendations her antibiotics were narrowed and she is currently on 500 mg of cefadroxil p.o. b.i.d. with a planned completion date of 02/10/2017 to complete a 14-day course for presumed pyelonephritis. Of course, this course could be discontinued early pending her continued goals of care discussion. On workup of her presentation of sepsis she did have a CT scan of the chest as mentioned above. This showed a right-sided pleural effusion as well as some nodules that could be concerning for infection versus a metastatic malignancy. She did undergo a thoracentesis as mentioned above, and at the date of this dictation the fluid from the thoracentesis has shown no microorganism and no sign of infection, though per Light's criteria is consistent with an exudative effusion. There is a possibility that this could be related to an underlying malignancy that is yet to be discovered. However, prior to my taking over this patient's care there were extensive discussions with the family with Palliative Care regarding goals of care. Given the patient's advanced dementia and nonverbal status as well as her bed-bound situation it was felt that more conservative measures were most appropriate, and they wish for her to be discharged [facility] to [facility] as soon as possible with hospice conversations to occur there and likely transition to full comfort care. Should the patient's family decide to revert course on this and not to pursue hospice then further diagnostic workup could be initiated for these lung nodules. As mentioned above, for the patient's advanced dementia and acute metabolic encephalopathy, she did return her baseline with treatment of her sepsis and she will be [facility] to her [facility] with discussions of hospice continue and then likely transition to comfort care in the near future. Regarding her right-sided pleural effusion that for which she underwent thoracentesis is procedure was complicated by an ex vacuo pneumothorax. Radiology called me about this finding and assured me that unless the patient had decompensation in respiratory status there will be no reason to intervene for this such as placing a chest tube. She did undergo a repeat chest x-ray on 02/02/2017 which showed persistence though not worsen of her ex vacuo pneumothorax and given her complete lack of respiratory distress, currently saturating fine on room air with no increased work of breathing as well as the patient's family's wishes for likely transition to comfort care. I think it is best that she is to be monitored for now. Should she develop acute respiratory distress and certainly worsening of this, ex vacuo pneumothorax could be considered and then workup could be done as appropriate. For COPD she was started on an inhaler regimen that she will be discharged with. She was at one point started on prednisone on 02/01/2017, and this was continued until today 02/03/2017, taper was not prescribed given a very short course of prednisone and do not think she needs to continue prednisone use on discharge. DISCHARGE MEDICATIONS: 1. Ascorbic acid 500 mg p.o. twice per day. 2. Aspirin 81 mg p.o. daily. 3. Atorvastatin 40 mg p.o. at bedtime. 4. Cefadroxil 500 mg p.o. twice per day with an end date of 02/10/2017. Discharge Summary [address] [place]. [address] NAME: VARUN ETIENNE : 28 STATUS : DIS IN PAT#: [id number] AGE: 86 ADM/REG DATE : 01/28/17 MR#: [id number] REPORT SERV DATE: 02/04/17 DICTATED BY: SATHISH DELEONOFFER DATE: 02/03/17 REPORT STATUS : Draft TRANSCRIBED BY: MODL DATE: 02/03/17 5. Collagenase ointment to the right buttock with dressing daily. 6. Docusate 100 mg p.o. twice per day. 7. Ferrous sulfate 325 mg p.o. daily. 8. Multivitamin one tab p.o. daily. 9. Omeprazole 40 mg p.o. daily. 10.MiraLAX 17 g p.o. daily. 11.Kayla-Colace tab, two tabs p.o. at bedtime. 12.Potassium chloride 20 mEq p.o. daily. 13.Quetiapine 150 mg p.o. twice per day. 14.Pulmicort 0.5 mg inhale twice a day. 15.Tylenol 650 mg p.o. q.4 hours p.r.n. for fever or pain. 16.Xanax 0.5 mg p.o. every 6 hours p.r.n. for anxiety. 17.Dulcolax suppository 10 mg p.r.n. 18.Milk of magnesia 30 mL p.o. daily p.r.n. for constipation. 19.4 mg disintegrating tablet every 4 hours of ondansetron p.r.n. for nausea. 20.Tramadol 50 mg p.o. b.i.d. p.r.n. for pain not to be administered at the same time as Xanax. 21.Albuterol inhaler every two hours p.r.n. for shortness of breath. 22.Amlodipine 10 mg p.o. daily. 23.Hydralazine 25 mg p.o. twice per day. 24.Santyl ointment to the right buttock with dressing changes. 25.Fleet enemas p.r.n. for constipation. FOLLOWUP: Again, the patient is discharged to [facility] with plan for transition to hospice and continue discussion of that. As above, we will discharge her with the full medication list including antibiotics to be continued until 02/10/2017, though course with any transition to comfort care, these should be discontinued as however seeing physician sees fit. Again it is worth noting that should the patient's family decide not to transition to hospice and instead focus on full medical therapy, full diagnostic workup, then the lung nodules found incidentally on her CT scan should be considered further with either followup imaging or an attempt at biopsy if possible, if the family would want that. Approximately 45 minutes were spent coordinating the discharge of this patient. CARLOS/HAROLDO Sathish Deleon MD / [id number] CC: Sathish Deleon MD
--- NOTE | ~2017-01-28 | CN ---
Consultation Report [facility] [address] [place]. [address] NAME: WANDA GODFREY : 28 STATUS : ADM IN PAT#: [id number] AGE: 86 ADM/REG DATE : 01/28/17 MR#: [id number] REPORT SERV DATE: 01/30/17 DICTATED BY: ROBIN NAVARRO DATE: 01/30/17 REPORT STATUS : Draft TRANSCRIBED BY: HAROLDO DATE: 01/30/17 PULMONARY CRITICAL CARE ADDITIONAL DOCUMENTATION DATE OF CONSULTATION: 01/30/2017 HISTORY OF PRESENT ILLNESS: Wanda Godfrey is an 86-year-old lady with underlying advanced stage dementia and history of recent stroke last year. She is nonverbal at baseline and is bed bound at [facility]. She moans and mumbles at baseline. She has been a full DNR for the last 4 to 5 years according to her and daughter whom I spoke with at length this evening. Evidently, she was moved from the floor earlier today during a rapid response when she was noted to be somewhat hypoxemic and hypotensive. According to the reports since her arrival in the ICU, she has been on room air with a sat greater than 95% and satisfactory hemodynamics with normal MAPs on no vasopressors. She has never required vasopressors since her transfer to the ICU earlier today. In discussing the situation with her daughter, evidently, her code status was changed earlier this morning to full after reported consultation with the patient's ; however, in discussing it with and daughter this evening, they do not believe that they changed the code status and have verbalized to both myself and nursing staff that they wish for her to continue to be a full DNR and would like her to be moved back to a private room on the floor. To that end, we have resumed her home medications and will arrange for her to transfer back to the floor as a full DNR this evening. Her care will be picked up by the hospitalist service, whom we have made aware of her return to the diaz. The primary contact for medical decisions should be the patient's daughter, Sophia Lacy, [phone]. Her is also quite elderly and also participates in decision making. His number is [phone]. MEREDITH/HAROLDO Robin Navarro MD / [id number] CC: Vitaly Caraballo DO
[~2017-01-28 14:37] MED LIST changes: +BISR PR; +DSS PO; +JANUVIA100 MG PO; +LANTUSCART SC; +LIDOCAINE JELLY 2% TOP; +MIRALAX POWDER1 PKT PO; +MOMUD PO; +MULTIVIT/MIN PO; +NORCO1 TA1 PO; +NORV5 PO; +REM15 PO; +SENTAB PO; +SEROQUEL50 MG PO; +SILTUSSIN100 MG/5 M PO; +VENTOLIN HFA INH; +VITC500 PO; +X5 PO; +ZOL50 PO
[2017-01-28 16:11] LABS: BASOPHILS 0.1 %; BASOPHILS ABSOLUTE 0.01 10/3/uL (0.0-0.16); EOSINOPHILS 0.1 %; EOSINOPHILS ABSOLUTE 0.01 10/3/uL (0.0-0.53); HEMATOCRIT 33.9 % (36.0-48.0); HEMOGLOBIN 10.6 g/dL (12.0-16.0); IMMATURE GRANULOCYTES 0.6 %; IMMATURE GRANULOCYTES ABSOLUTE 0.06 10/3/uL (0.0-0.11); LYMPHOCYTES 7.6 %; MEAN CORPUS HGB CONC 31.3 g/dL (32.0-36.0); MEAN CORPUSCULAR HEMOGLOB 27.7 pg (26.0-34.0); MEAN PLATELET VOLUME 9.4 fL (9.2-13.0); MONOCYTES 6.3 %; MONOCYTES ABSOLUTE 0.66 10/3/uL (0.21-1.20); NEUTROPHILS 85.3 %; NEUTROPHILS ABSOLUTE 9.02 10/3/uL (2.02-8.40); RBC DISTRIBUTION WIDTH 15.1 % (12.0-16.0); RED CELL COUNT 3.82 10/6/uL (4.0-5.6)
[2017-01-28] MEDS ORDERED: NORV10 PO (16:11)
[2017-01-28] MEDS ORDERED: DSS PO (16:12)
[2017-01-28] MEDS ORDERED: LOP25 PO (16:12)
[2017-01-28] MEDS ORDERED: APRES25 PO (16:12)
[2017-01-28] MEDS ORDERED: FERROUS SULF325 M1 PO (16:12)
[2017-01-28] MEDS ORDERED: REM15 PO (16:12)
[2017-01-28] MEDS ORDERED: MIRALAX POWDER1 PKT PO (16:12)
[2017-01-28] MEDS ORDERED: MULTIVIT/MIN PO (16:13)
[2017-01-28] MEDS ORDERED: SEROQUEL1C PO (16:13)
[2017-01-28] MEDS ORDERED: PRILOSEC40 MG PO (16:13)
[2017-01-28] MEDS ORDERED: KLOR-CON M2020 MEQ PO (16:13)
[2017-01-28 16:15] LABS: ER CBC TAT 0 Hrs 10 Mins; MANUAL DIFF NO %; MEAN CORPUSCULAR VOLUME 88.7 fL (80-100); PLATELET COUNT 525 10/3/uL (150-400); WHITE BLOOD CELLS 10.6 10/3/uL (4.5-10.5)
[2017-01-28] MEDS ORDERED: ULTRAM50 PO ×2 (16:15→16:21)
[2017-01-28] MEDS ORDERED: [UNRECOGNIZED DRUG - OTHER] TOP (16:15)
[2017-01-28] MEDS ORDERED: VITC500 PO (16:15)
[2017-01-28] MEDS ORDERED: PERI-COLACE1 TAB PO (16:15)
[2017-01-28] MEDS ORDERED: X5 PO (16:18)
[2017-01-28 16:19] LABS: INTERNATIONAL NORMAL RATI 1.2 UNITS (-); PROTIME (NOT ORD) 14.9 SEC (12.0-14.5)
[2017-01-28] MEDS ORDERED: BISR PR (16:19)
[2017-01-28 16:20] LABS: PARTIAL THROMBO TIME 38.9 SEC (22.5-37.2)
[2017-01-28] MEDS ORDERED: FLEET ENEMA PR (16:20)
[2017-01-28] MEDS ORDERED: MOMUD PO (16:21)
[2017-01-28 16:29] LABS: ALBUMIN 2.1 G/DL (3.5-5.0); BUN (BLOOD UREA NITROGEN) 22 MG/DL (6-23); CALCIUM, SERUM 9.2 MG/DL (8.5-10.4); CHEST PAIN PROFILE TAT 0 Hrs 24 Mins; CHLORIDE, SERUM 104 MMOL/L (96-112); CO2 (CARBON DIOXIDE) 26 MMOL/L (24-34); CREATININE 0.67 MG/DL (0.55-1.02); DIRECT BILIRUBIN 0.1 MG/DL (0.0-0.4); GFR AFRICAN AMERICAN 92 ML/MIN (>=60); GFR NON AFRICAN AMERICAN 79 ML/MIN (>=60); INDIRECT BILIRUBIN(NOT ORDER) 0.4 MG/DL (0.1-0.9); POTASSIUM, SERUM 4.6 MMOL/L (3.5-5.3); SGOT(AST) 24 U/L (5-40); SGPT(ALT) 14 U/L (5-65); SODIUM, SERUM 137 MMOL/L (135-148); TOTAL BILIRUBIN 0.5 MG/DL (0-1.2); TROPONIN I 0.02 NG/ML (<0.05)
[2017-01-28 16:42] LABS: ALKALINE PHOSPHATASE 87 U/L (45-117); GLUCOSE, SERUM 178 MG/DL (60-99); TOTAL PROTEIN 8.7 G/DL (6.0-8.5)
[2017-01-28 16:46] LABS: ASCORBIC ACID (UR NOT ORDER) NEG (NEG); BILIRUBIN, URINE NEGATIVE (NEG); ER URINALYSIS TAT 0 Hrs 27 Mins; KETONE, URINE NEGATIVE (NEG); LEUKOCYTE ESTERASE(NOT OR LARGE (NEG); NITRITE (URINE) NEG (NEG); WBC (NOT ORDERED) (RFLEX) > 182 (0-5)
[2017-01-28 17:03] LABS: LACTATE 1.1 MMOL/L (0.3-2.4)
[2017-01-28 17:32] LABS: PROCALCITONIN 0.07 ng/mL (<0.5)
[2017-01-29 07:01] LABS: BASOPHILS 0.2 %; BASOPHILS ABSOLUTE 0.02 10/3/uL (0.0-0.16); EOSINOPHILS 1.7 %; EOSINOPHILS ABSOLUTE 0.19 10/3/uL (0.0-0.53); HEMATOCRIT 32.5 % (36.0-48.0); HEMOGLOBIN 10.3 g/dL (12.0-16.0); IMMATURE GRANULOCYTES 0.4 %; IMMATURE GRANULOCYTES ABSOLUTE 0.04 10/3/uL (0.0-0.11); LYMPHOCYTES 17.9 %; LYMPHOCYTES ABSOLUTE 2.01 10/3/uL (0.67-4.30); MEAN CORPUS HGB CONC 31.7 g/dL (32.0-36.0); MEAN CORPUSCULAR HEMOGLOB 27.9 pg (26.0-34.0); MEAN CORPUSCULAR VOLUME 88.1 fL (80-100); MEAN PLATELET VOLUME 9.7 fL (9.2-13.0); MONOCYTES 10.7 %; NEUTROPHILS 69.1 %; NEUTROPHILS ABSOLUTE 7.74 10/3/uL (2.02-8.40); PLATELET COUNT 514 10/3/uL (150-400); RED CELL COUNT 3.69 10/6/uL (4.0-5.6); WHITE BLOOD CELLS 11.2 10/3/uL (4.5-10.5)
[2017-01-29 07:05] LABS: CALCIUM, SERUM 9.5 MG/DL (8.5-10.4); CHLORIDE, SERUM 104 MMOL/L (96-112); CO2 (CARBON DIOXIDE) 26 MMOL/L (24-34); CREATININE 0.41 MG/DL (0.55-1.02); GFR AFRICAN AMERICAN 108 ML/MIN (>=60); GFR NON AFRICAN AMERICAN 93 ML/MIN (>=60); SODIUM, SERUM 135 MMOL/L (135-148)
[2017-01-29 07:06] LABS: BUN (BLOOD UREA NITROGEN) 15 MG/DL (6-23); GLUCOSE, SERUM 96 MG/DL (60-99); MANUAL DIFF NO %
[2017-01-30 06:36] LABS: BASOPHILS 0 %; EOSINOPHILS 0 %; HEMATOCRIT 30.2 % (36.0-48.0); HEMOGLOBIN 9.8 g/dL (12.0-16.0); IMMATURE GRANULOCYTES 0.5 %; IMMATURE GRANULOCYTES ABSOLUTE 0.05 10/3/uL (0.0-0.11); LYMPHOCYTES 7.3 %; LYMPHOCYTES ABSOLUTE 0.67 10/3/uL (0.67-4.30); MANUAL DIFF NO %; MEAN CORPUS HGB CONC 32.5 g/dL (32.0-36.0); MEAN CORPUSCULAR HEMOGLOB 28.1 pg (26.0-34.0); MEAN CORPUSCULAR VOLUME 86.5 fL (80-100); MEAN PLATELET VOLUME 9.3 fL (9.2-13.0); MONOCYTES 3.5 %; MONOCYTES ABSOLUTE 0.32 10/3/uL (0.21-1.20); NEUTROPHILS 88.7 %; PLATELET COUNT 467 10/3/uL (150-400); RBC DISTRIBUTION WIDTH 14.8 % (12.0-16.0); RED CELL COUNT 3.49 10/6/uL (4.0-5.6); WHITE BLOOD CELLS 9.1 10/3/uL (4.5-10.5)
[2017-01-30 06:43] LABS: INTERNATIONAL NORMAL RATI 1.4 UNITS (-); PARTIAL THROMBO TIME 46.7 SEC (22.5-37.2); PROTIME (NOT ORD) 16.7 SEC (12.0-14.5)
[2017-01-30 06:46] LABS: BUN (BLOOD UREA NITROGEN) 15 MG/DL (6-23); CALCIUM, SERUM 9.1 MG/DL (8.5-10.4); CHLORIDE, SERUM 105 MMOL/L (96-112); CO2 (CARBON DIOXIDE) 23 MMOL/L (24-34); CREATININE 0.48 MG/DL (0.55-1.02); GFR AFRICAN AMERICAN 102 ML/MIN (>=60); GFR NON AFRICAN AMERICAN 88 ML/MIN (>=60); POTASSIUM, SERUM 3.5 MMOL/L (3.5-5.3); SODIUM, SERUM 139 MMOL/L (135-148)
[2017-01-30 06:48] LABS: GLUCOSE, SERUM 216 MG/DL (60-99); PHOSPHORUS, SERUM 3.1 MG/DL (2.5-4.5)
[2017-01-30 07:11] LABS: PROCALCITONIN <0.05 ng/mL (<0.5)
[2017-01-30 11:04] LABS: BASOPHILS 0.1 %; BASOPHILS ABSOLUTE 0.01 10/3/uL (0.0-0.16); EOSINOPHILS 0 %; HEMATOCRIT 31.1 % (36.0-48.0); IMMATURE GRANULOCYTES 0.7 %; IMMATURE GRANULOCYTES ABSOLUTE 0.07 10/3/uL (0.0-0.11); LYMPHOCYTES 8.6 %; LYMPHOCYTES ABSOLUTE 0.87 10/3/uL (0.67-4.30); MEAN CORPUS HGB CONC 32.2 g/dL (32.0-36.0); MEAN CORPUSCULAR HEMOGLOB 28.2 pg (26.0-34.0); MEAN CORPUSCULAR VOLUME 87.9 fL (80-100); MEAN PLATELET VOLUME 9.2 fL (9.2-13.0); MONOCYTES 7.7 %; MONOCYTES ABSOLUTE 0.78 10/3/uL (0.21-1.20); NEUTROPHILS 82.9 %; NEUTROPHILS ABSOLUTE 8.35 10/3/uL (2.02-8.40); PLATELET COUNT 456 10/3/uL (150-400); RBC DISTRIBUTION WIDTH 14.8 % (12.0-16.0); RED CELL COUNT 3.54 10/6/uL (4.0-5.6); WHITE BLOOD CELLS 10.1 10/3/uL (4.5-10.5)
[2017-01-30 11:06] LABS: MANUAL DIFF NO %
[2017-01-30 11:13] LABS: BUN (BLOOD UREA NITROGEN) 15 MG/DL (6-23); CALCIUM, SERUM 9.4 MG/DL (8.5-10.4); CHLORIDE, SERUM 105 MMOL/L (96-112); CO2 (CARBON DIOXIDE) 23 MMOL/L (24-34); CREATININE 0.46 MG/DL (0.55-1.02); GFR AFRICAN AMERICAN 104 ML/MIN (>=60); GFR NON AFRICAN AMERICAN 89 ML/MIN (>=60); GLUCOSE, SERUM 205 MG/DL (60-99); PHOSPHORUS, SERUM 2.7 MG/DL (2.5-4.5); POTASSIUM, SERUM 3.3 MMOL/L (3.5-5.3); SODIUM, SERUM 136 MMOL/L (135-148)
[2017-01-30 13:18] LABS: CPK (IF ELEVATED MB BANDS) 37 U/L (0-200); TROPONIN I <0.02 NG/ML (<0.05)
[2017-01-31 05:51] LABS: BASOPHILS 0.1 %; BASOPHILS ABSOLUTE 0.01 10/3/uL (0.0-0.16); EOSINOPHILS 0.1 %; EOSINOPHILS ABSOLUTE 0.01 10/3/uL (0.0-0.53); HEMATOCRIT 28.3 % (36.0-48.0); HEMOGLOBIN 9.4 g/dL (12.0-16.0); IMMATURE GRANULOCYTES 0.6 %; IMMATURE GRANULOCYTES ABSOLUTE 0.07 10/3/uL (0.0-0.11); LYMPHOCYTES ABSOLUTE 0.89 10/3/uL (0.67-4.30); MEAN CORPUS HGB CONC 33.2 g/dL (32.0-36.0); MEAN CORPUSCULAR HEMOGLOB 28.7 pg (26.0-34.0); MEAN CORPUSCULAR VOLUME 86.3 fL (80-100); MEAN PLATELET VOLUME 9.2 fL (9.2-13.0); MONOCYTES 8.2 %; MONOCYTES ABSOLUTE 0.91 10/3/uL (0.21-1.20); NEUTROPHILS ABSOLUTE 9.24 10/3/uL (2.02-8.40); PLATELET COUNT 486 10/3/uL (150-400); RBC DISTRIBUTION WIDTH 14.8 % (12.0-16.0); RED CELL COUNT 3.28 10/6/uL (4.0-5.6); WHITE BLOOD CELLS 11.1 10/3/uL (4.5-10.5)
[2017-01-31 06:02] LABS: MANUAL DIFF NO %
[2017-01-31 06:06] LABS: BUN (BLOOD UREA NITROGEN) 11 MG/DL (6-23); CALCIUM, SERUM 9.3 MG/DL (8.5-10.4); CHLORIDE, SERUM 104 MMOL/L (96-112); CO2 (CARBON DIOXIDE) 25 MMOL/L (24-34); CREATININE 0.39 MG/DL (0.55-1.02); GFR AFRICAN AMERICAN 109 ML/MIN (>=60); GFR NON AFRICAN AMERICAN 94 ML/MIN (>=60); GLUCOSE, SERUM 157 MG/DL (60-99); PHOSPHORUS, SERUM 1.4 MG/DL (2.5-4.5); POTASSIUM, SERUM 2.9 MMOL/L (3.5-5.3); SODIUM, SERUM 137 MMOL/L (135-148)
[2017-02-01 05:24] LABS: INTERNATIONAL NORMAL RATI 1.4 UNITS (-); PARTIAL THROMBO TIME 37.7 SEC (22.5-37.2); PROTIME (NOT ORD) 16.8 SEC (12.0-14.5)
[2017-02-01 05:25] LABS: BASOPHILS 0.1 %; BASOPHILS ABSOLUTE 0.01 10/3/uL (0.0-0.16); EOSINOPHILS 0.4 %; EOSINOPHILS ABSOLUTE 0.03 10/3/uL (0.0-0.53); HEMATOCRIT 30.5 % (36.0-48.0); IMMATURE GRANULOCYTES 0.7 %; IMMATURE GRANULOCYTES ABSOLUTE 0.06 10/3/uL (0.0-0.11); LYMPHOCYTES 12.3 %; LYMPHOCYTES ABSOLUTE 1.04 10/3/uL (0.67-4.30); MEAN CORPUS HGB CONC 32.8 g/dL (32.0-36.0); MEAN CORPUSCULAR HEMOGLOB 28.6 pg (26.0-34.0); MEAN CORPUSCULAR VOLUME 87.1 fL (80-100); MEAN PLATELET VOLUME 9.2 fL (9.2-13.0); MONOCYTES ABSOLUTE 0.93 10/3/uL (0.21-1.20); NEUTROPHILS 75.5 %; NEUTROPHILS ABSOLUTE 6.36 10/3/uL (2.02-8.40); PLATELET COUNT 524 10/3/uL (150-400); RBC DISTRIBUTION WIDTH 15.3 % (12.0-16.0); WHITE BLOOD CELLS 8.4 10/3/uL (4.5-10.5)
[2017-02-01 05:31] LABS: MANUAL DIFF NO %
[2017-02-01 05:39] LABS: BUN (BLOOD UREA NITROGEN) 8 MG/DL (6-23); CALCIUM, SERUM 8.7 MG/DL (8.5-10.4); CHLORIDE, SERUM 106 MMOL/L (96-112); CO2 (CARBON DIOXIDE) 26 MMOL/L (24-34); CREATININE 0.44 MG/DL (0.55-1.02); GFR AFRICAN AMERICAN 105 ML/MIN (>=60); GFR NON AFRICAN AMERICAN 91 ML/MIN (>=60); PHOSPHORUS, SERUM 1.2 MG/DL (2.5-4.5); SGOT(AST) 20 U/L (5-40); SGPT(ALT) 11 U/L (5-65); SODIUM, SERUM 139 MMOL/L (135-148); TOTAL BILIRUBIN 0.4 MG/DL (0-1.2); TOTAL PROTEIN 7.4 G/DL (6.0-8.5)
[2017-02-01 05:40] LABS: ALKALINE PHOSPHATASE 64 U/L (45-117); DIRECT BILIRUBIN < 0.1 MG/DL (0.0-0.4); GLUCOSE, SERUM 84 MG/DL (60-99); INDIRECT BILIRUBIN(NOT ORDER) 0.3 MG/DL (0.1-0.9); POTASSIUM, SERUM 4.2 MMOL/L (3.5-5.3)
[2017-02-01 16:33] LABS: LDH BODY FLUID (NOT ORD) 91 U/L; PROTEIN BODY FLUID 4.9 G/DL
[2017-02-02 06:21] LABS: BD FL SOURCE (NOT ORD) PLEURAL
[2017-02-02 06:39] LABS: BASOPHILS 0.1 %; BASOPHILS ABSOLUTE 0.01 10/3/uL (0.0-0.16); EOSINOPHILS 1.1 %; EOSINOPHILS ABSOLUTE 0.08 10/3/uL (0.0-0.53); HEMOGLOBIN 11.2 g/dL (12.0-16.0); IMMATURE GRANULOCYTES ABSOLUTE 0.07 10/3/uL (0.0-0.11); LYMPHOCYTES 15.1 %; MEAN CORPUS HGB CONC 33.1 g/dL (32.0-36.0); MEAN CORPUSCULAR HEMOGLOB 28.8 pg (26.0-34.0); MEAN CORPUSCULAR VOLUME 86.9 fL (80-100); MEAN PLATELET VOLUME 9.1 fL (9.2-13.0); MONOCYTES 9.9 %; MONOCYTES ABSOLUTE 0.72 10/3/uL (0.21-1.20); NEUTROPHILS 72.8 %; NEUTROPHILS ABSOLUTE 5.29 10/3/uL (2.02-8.40); PLATELET COUNT 513 10/3/uL (150-400); RBC DISTRIBUTION WIDTH 15.5 % (12.0-16.0); RED CELL COUNT 3.89 10/6/uL (4.0-5.6); WHITE BLOOD CELLS 7.3 10/3/uL (4.5-10.5)
[2017-02-02 06:40] LABS: HEMATOCRIT 33.8 % (36.0-48.0); MANUAL DIFF NO %
[2017-02-02 06:52] LABS: BUN (BLOOD UREA NITROGEN) 8 MG/DL (6-23); CALCIUM, SERUM 8.9 MG/DL (8.5-10.4); CHLORIDE, SERUM 102 MMOL/L (96-112); CO2 (CARBON DIOXIDE) 27 MMOL/L (24-34); CREATININE 0.43 MG/DL (0.55-1.02); GFR AFRICAN AMERICAN 106 ML/MIN (>=60); GFR NON AFRICAN AMERICAN 91 ML/MIN (>=60); GLUCOSE, SERUM 88 MG/DL (60-99); PHOSPHORUS, SERUM 2.2 MG/DL (2.5-4.5); POTASSIUM, SERUM 3.2 MMOL/L (3.5-5.3); SODIUM, SERUM 137 MMOL/L (135-148)
[2017-02-02 08:35] LABS: BASOPHILS 0.3 %; BASOPHILS ABSOLUTE 0.02 10/3/uL (0.0-0.16); EOSINOPHILS 1.5 %; EOSINOPHILS ABSOLUTE 0.11 10/3/uL (0.0-0.53); HEMATOCRIT 31.7 % (36.0-48.0); HEMOGLOBIN 10.3 g/dL (12.0-16.0); IMMATURE GRANULOCYTES 0.7 %; IMMATURE GRANULOCYTES ABSOLUTE 0.05 10/3/uL (0.0-0.11); LYMPHOCYTES 13.8 %; LYMPHOCYTES ABSOLUTE 1.04 10/3/uL (0.67-4.30); MANUAL DIFF NO %; MEAN CORPUS HGB CONC 32.5 g/dL (32.0-36.0); MEAN CORPUSCULAR HEMOGLOB 28.3 pg (26.0-34.0); MEAN CORPUSCULAR VOLUME 87.1 fL (80-100); MEAN PLATELET VOLUME 9.3 fL (9.2-13.0); MONOCYTES 9.4 %; MONOCYTES ABSOLUTE 0.71 10/3/uL (0.21-1.20); NEUTROPHILS 74.3 %; NEUTROPHILS ABSOLUTE 5.61 10/3/uL (2.02-8.40); PLATELET COUNT 504 10/3/uL (150-400); RBC DISTRIBUTION WIDTH 15.4 % (12.0-16.0); RED CELL COUNT 3.64 10/6/uL (4.0-5.6); WHITE BLOOD CELLS 7.5 10/3/uL (4.5-10.5)
[2017-02-02 08:44] LABS: BUN (BLOOD UREA NITROGEN) 8 MG/DL (6-23); CALCIUM, SERUM 8.4 MG/DL (8.5-10.4); CHLORIDE, SERUM 105 MMOL/L (96-112); CO2 (CARBON DIOXIDE) 26 MMOL/L (24-34); GFR AFRICAN AMERICAN 109 ML/MIN (>=60); GFR NON AFRICAN AMERICAN 94 ML/MIN (>=60); GLUCOSE, SERUM 90 MG/DL (60-99); PHOSPHORUS, SERUM 2.2 MG/DL (2.5-4.5); POTASSIUM, SERUM 3.1 MMOL/L (3.5-5.3); SODIUM, SERUM 139 MMOL/L (135-148)
[2017-02-03 07:38] LABS: BASOPHILS 0.2 %; BASOPHILS ABSOLUTE 0.01 10/3/uL (0.0-0.16); EOSINOPHILS 2.6 %; EOSINOPHILS ABSOLUTE 0.17 10/3/uL (0.0-0.53); IMMATURE GRANULOCYTES 0.9 %; IMMATURE GRANULOCYTES ABSOLUTE 0.06 10/3/uL (0.0-0.11); LYMPHOCYTES 14.5 %; LYMPHOCYTES ABSOLUTE 0.94 10/3/uL (0.67-4.30); MEAN CORPUS HGB CONC 32.3 g/dL (32.0-36.0); MEAN CORPUSCULAR VOLUME 86.8 fL (80-100); MEAN PLATELET VOLUME 9.2 fL (9.2-13.0); MONOCYTES 9.6 %; MONOCYTES ABSOLUTE 0.62 10/3/uL (0.21-1.20); NEUTROPHILS 72.2 %; NEUTROPHILS ABSOLUTE 4.69 10/3/uL (2.02-8.40); PLATELET COUNT 469 10/3/uL (150-400); RBC DISTRIBUTION WIDTH 15.6 % (12.0-16.0); RED CELL COUNT 3.57 10/6/uL (4.0-5.6); WHITE BLOOD CELLS 6.5 10/3/uL (4.5-10.5)
[2017-02-03 07:40] LABS: MANUAL DIFF NO %
[2017-02-03 07:58] LABS: BUN (BLOOD UREA NITROGEN) 11 MG/DL (6-23); CALCIUM, SERUM 8.4 MG/DL (8.5-10.4); CHLORIDE, SERUM 104 MMOL/L (96-112); CO2 (CARBON DIOXIDE) 28 MMOL/L (24-34); CREATININE 0.43 MG/DL (0.55-1.02); GFR AFRICAN AMERICAN 106 ML/MIN (>=60); GFR NON AFRICAN AMERICAN 91 ML/MIN (>=60); GLUCOSE, SERUM 90 MG/DL (60-99); PHOSPHORUS, SERUM 1.9 MG/DL (2.5-4.5); POTASSIUM, SERUM 3.4 MMOL/L (3.5-5.3); SODIUM, SERUM 139 MMOL/L (135-148)
== END 2017-02-03 17:26 | DRG 871 ==
LOC: ENRESERV → ENRESERVTM → ENRESERVDT → ER 14:37 → CCU 17:57 → 5SO 17:57 → ENPENDDIS 17:57 → 5SO 01-29 21:30 → CCU 01-30 09:57 → 5SO 01-30 23:51
PROVIDERS: Emergency Medicine; Internal Medicine; Internal Medicine Pulmonary Disease
PROC: 0W9930Z Drainage of Right Pleural Cavity with Drainage Device, Percutaneous Approach (ICD-10-PCS; principal; 2017-02-01)
DX: A41.9 Sepsis, unspecified organism (principal); G93.41 Metabolic encephalopathy; E43 Unspecified severe protein-calorie malnutrition; J90 Pleural effusion, not elsewhere classified; N39.0 Urinary tract infection, site not specified; F03.91 Unspecified dementia, unspecified severity, with behavioral disturbance; E11.9 Type 2 diabetes mellitus without complications; B96.20 Unspecified Escherichia coli [E. coli] as the cause of diseases classified elsewhere; I10 Essential (primary) hypertension; L97.919 Non-pressure chronic ulcer of unspecified part of right lower leg with unspecified severity; F11.20 Opioid dependence, uncomplicated; R65.20 Severe sepsis without septic shock; Z66 Do not resuscitate; Z51.5 Encounter for palliative care; D64.9 Anemia, unspecified; J44.9 Chronic obstructive pulmonary disease, unspecified; I25.10 Atherosclerotic heart disease of native coronary artery without angina pectoris; I50.9 Heart failure, unspecified; K59.09 Other constipation; E87.6 Hypokalemia; M06.9 Rheumatoid arthritis, unspecified; I73.9 Peripheral vascular disease, unspecified; Z95.1 Presence of aortocoronary bypass graft; Z79.51 Long term (current) use of inhaled steroids; Z87.440 Personal history of urinary (tract) infections
CPT/HCPCS: 32555; 36600; 71010; 71250; 73701-RT; 80048; 80076; 81001; 82330; 82533; 82550; 82803; 82947; 82962; 83605; 83615; 83690; 83735; 84100; 84132; 84145; 84157; 84295; 84484; 85014; 85025; 85610; 85730; 86141; 87040; 87070; 87077; 87086; 87150; 87186; 87205; 87449; 87641; 88112; 88305; 93005; 94640; 96374; 99285; A9270-GY; J0690; J0692; J2405; J2930; J3370; J3475; Q9967